=== PATIENT | female | born 1975 | race Two or more races ===

== ENCOUNTER → 2020-07-06 | Outpatient (CLI) | payer OTHER ==
[~2020-07-06] MED LIST: BUPR300T49 PO; FLUO40CA2 PO; TRAZ50TA66 PO; [UNRECOGNIZED DRUG - OTHER] PO
[2020-07-06 16:21] LABS: BASOPHILS % (AUTO) 0 % (0-1); EOSINOPHILS % (AUTO) 1 % (1-7); LYMPHOCYTES % (AUTO) 24 % (22-44); MEAN CORPUSCULAR HEMOGLOBIN 29.2 pg (27.0-34.8); MEAN CORPUSCULAR HGB CONC 32.8 g/dL (32.4-35.8); MEAN PLATELET VOLUME 8.2 fL (7.4-10.4); MONOCYTES % (AUTO) 7 % (2-9); NEUTROPHILS % (AUTO) 68 % (42-75); PLATELET COUNT 274 x10^3/uL (130-400); RED BLOOD COUNT 4.36 x10^6/uL (3.82-5.3)
[2020-07-06 16:23] LABS: MD NO
[2020-07-06 16:32] LABS: ALBUMIN 3.7 g/dL (3.4-5.0); ANION GAP 5 mmol/L (5-15); CALCIUM 8.6 mg/dL (8.5-10.1); CHLORIDE 104 mmol/L (98-107); MICROSCOPIC NOT IND
[2020-07-06 16:37] LABS: ALANINE AMINOTRANSFERASE 22 U/L (12-78); ALKALINE PHOSPHATASE 45 U/L (45-117); BILIRUBIN,TOTAL 0.3 mg/dL (0.2-1.0); CREATININE 1.05 mg/dL (0.55-1.02); TOTAL PROTEIN 7.5 g/dL (6.4-8.2)
== END | disposition home or self-care (01) ==
LOC: STAR 15:02
PROVIDERS: ATTEND Obstetrics & Gynecology Gynecology
DX: Z01.812 Encounter for preprocedural laboratory examination (principal); Z20.828 Contact with and (suspected) exposure to other viral communicable diseases; N94.6 Dysmenorrhea, unspecified; N93.9 Abnormal uterine and vaginal bleeding, unspecified; R10.2 Pelvic and perineal pain
CPT/HCPCS: 36415; 80053; 81003; 84703; 85025; 87635

== ENCOUNTER 2020-07-13 07:33 | Day surgery (SDC) | payer OTHER ==
[~2020-07-13] VITALS: Ht 172.7 cm; Wt 89.4 kg
[2020-07-13] MEDS ORDERED: CHLORHEXIDINE 15 ML UDC MM ONE (08:00)
[2020-07-13] MEDS ORDERED: LACTATED RINGERS 1,000 ML IV SCH (08:00)
[2020-07-13 08:28] LABS: HCG UR SG 1.022 (1.003-1.030)
[2020-07-13] MEDS ORDERED: HYDROmorphone 1 MG/ML, 1ML INJ IVPush PRN (09:00)
[2020-07-13] MEDS ORDERED: HYDROcodone/APAP 7.5-325MG/15ML UDC PO PRN (09:00)
[2020-07-13] MEDS ORDERED: HALOPERIDOL 5 MG/ML IV PRN (09:00)
[2020-07-13] MEDS ORDERED: hydrALAzine 20 MG/ML, 1ML IV PRN (09:00)
[2020-07-13] MEDS ORDERED: MEPERIDINE/PF 25MG/0.5ML IVPush PRN (09:00)
[2020-07-13] MEDS ORDERED: DIPHENHYDRAMINE 50 MG/ML, 1ML IVPush PRN (09:00)
[2020-07-13] MEDS ORDERED: LABETALOL 5MG/ML, 20ML IV PRN (09:00)
[2020-07-13] MEDS ORDERED: FLUORESCEIN SODIUM 500 MG/5 ML ONE (09:06)
[2020-07-13] MEDS ORDERED: SCOPOLAMINE 1MG PATCH TD ONE (09:17)
[2020-07-13] MEDS ORDERED: FENTANYL PF 250 MCG/5ML ONE (09:18)
[2020-07-13] MEDS ORDERED: MIDAZOLAM 1 MG/ML, 2ML ONE (09:18)
[2020-07-13] MEDS ORDERED: KETOROLAC 30 MG/1 ML ONE (09:30)
[2020-07-13] MEDS ORDERED: FENTANYL PF 100 MCG/2ML ONE ×2 (10:53→11:53)
[2020-07-13] MEDS ORDERED: PROMETHAZINE 25 MG/ML, 1ML ONE (11:17)
[2020-07-13] MEDS: PROMETHAZINE 25 MG/ML, 1ML IVPush PRN (11:20)
[2020-07-13] MEDS ORDERED: NEOSTIGMINE 1 MG/ML, 10ML ONE ×2 (11:22→11:39)
[2020-07-13] MEDS ORDERED: MEPERIDINE/PF 25MG/ML,1ML ONE (11:35)
[2020-07-13] MEDS ORDERED: OXYcodone 5 MG/5 ML ORAL.SOL UDC ONE (11:35)
[2020-07-13] MEDS: OXYcodone 5 MG/5 ML ORAL.SOL UDC PO PRN ×3 (11:35→14:27)
[2020-07-13] MEDS ORDERED: ACETAMINOPHEN 650 MG/20.3 ML UDC ONE (11:35)
[2020-07-13] MEDS ORDERED: PROPOFOL 10 MG/ML, 20ML ONE (11:39)
[2020-07-13] MEDS ORDERED: SUCCINYLCHOLINE 20 MG/ML, 10ML ONE (11:39)
[2020-07-13] MEDS ORDERED: ROCURONIUM 10MG/ML,5ML ONE (11:39)
[2020-07-13] MEDS ORDERED: CEFAZOLIN 1,000 MG ONE (11:39)
[2020-07-13] MEDS ORDERED: ONDANSETRON 2MG/ML, 2ML ONE (11:39)
[2020-07-13] MEDS ORDERED: DEXAMETHASONE 4 MG/ML, 1ML ONE (11:39)
[2020-07-13] MEDS ORDERED: GLYCOPYRROLATE 0.2MG/1ML, 5ML ONE (11:39)
[2020-07-13] MEDS: FENTANYL PF 100 MCG/2ML IV PRN ×4 (11:55→12:11)
[2020-07-13] MEDS ORDERED: ACETAMINOPHEN 325 MG TABLET PO PRN (12:00)
[2020-07-13] MEDS ORDERED: IBUPROFEN 600 MG TABLET ONE (17:09)
[2020-07-13] MEDS ORDERED: IBUPROFEN 600 MG TABLET PO PRN (17:30)
== END 2020-07-13 17:30 | disposition home or self-care (01) ==
LOC: OUT 07:33
PROVIDERS: ATTEND Obstetrics & Gynecology Gynecology
DX: N93.9 Abnormal uterine and vaginal bleeding, unspecified (principal); Z20.828 Contact with and (suspected) exposure to other viral communicable diseases; D25.9 Leiomyoma of uterus, unspecified; N83.201 Unspecified ovarian cyst, right side; N73.6 Female pelvic peritoneal adhesions (postinfective); N80.0 Endometriosis of uterus; D68.51 Activated protein C resistance; F41.8 Other specified anxiety disorders; Z79.1 Long term (current) use of non-steroidal anti-inflammatories (NSAID); Z79.899 Other long term (current) drug therapy; Z88.8 Allergy status to other drugs, medicaments and biological substances; Z83.2 Family history of diseases of the blood and blood-forming organs and certain disorders involving the immune mechanism; Z82.3 Family history of stroke; Z83.3 Family history of diabetes mellitus; Z82.49 Family history of ischemic heart disease and other diseases of the circulatory system
CPT/HCPCS: 58571; 81025; 87635; 88307; J0330; J0690; J1100; J1885; J2175; J2250; J2405; J2550; J2704; J2710; J3010; J7120